=== PATIENT | female | born 1990 | race Hispanic/Latino ===

== ENCOUNTER 2020-12-14 11:46 | Emergency (ER) | payer OTHER ==
[~2020-12-14] VITALS: Ht 162.6 cm; Wt 54.4 kg
[2020-12-14] MEDS ORDERED: KETOROLAC TROMETHAMINE 60 MG/2 ML VIAL IM ONE (12:15)
[2020-12-14] MEDS ORDERED: DIAZEPAM 5 MG TAB PO ONE (12:15)
[2020-12-14 15:22] VITALS: BP 136/71
== END 2020-12-14 13:15 | disposition home or self-care (01) ==
LOC: ER 12:32
DX: M62.830 Muscle spasm of back (principal)
CPT/HCPCS: 81025; 99282; J1885